=== PATIENT | female | born 1990 | race American Indian/Alaskan Native ===

== ENCOUNTER 2019-07-06 10:47 | Emergency (ER) | payer OTHER ==
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
[2019-07-06 11:02] VITALS: BP 119/74
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
== END 2019-07-06 14:11 | disposition home or self-care (01) ==
LOC: ED 10:47
DX: M25.571 Pain in right ankle and joints of right foot (principal); M54.2 Cervicalgia; V49.49XA Driver injured in collision with other motor vehicles in traffic accident, initial encounter; Y93.89 Activity, other specified; Y92.488 Other paved roadways as the place of occurrence of the external cause; Y99.8 Other external cause status
CPT/HCPCS: 72040